=== PATIENT | female | born 1990 | race Caucasian/White ===

== ENCOUNTER 2017-12-18 09:09 | Day surgery (SDC) | payer OTHER ==
[2017-12-18 10:45] LABS: ADD MAN DIFF? NO
[2017-12-18 10:49] LABS: WHITE BLOOD COUNT 11.6 10^3/ul (4.8-10.8)
[2017-12-18 10:49] LABS: BASOPHILS % 0.1 % (0.0-2.0); EOSINOPHILS % 0.1 % (0.0-7.0); HEMATOCRIT 32.2 % (37.0-47.0); HEMOGLOBIN 10.2 g/dl (12.0-16.0); LYMPHOCYTES # 0.6 10^3/ul (0.8-2.9); LYMPHOCYTES % 5.3 % (15.0-51.0); MEAN CORPUSCULAR HEMOGLOBIN 33.2 pg (29.0-33.0); MEAN CORPUSCULAR HGB CONC 31.7 g/dl (32.0-37.0); MEAN CORPUSCULAR VOLUME 104.9 fl (82.0-101.0); MEAN PLATELET VOLUME 10.7 fl (7.4-10.4); MONOCYTE # 0.6 10^3/ul (0.3-0.9); MONOCYTES % 5.2 % (0.0-11.0); NEUTROPHIL # 10.3 10^3/ul (1.6-7.5); NEUTROPHILS % 88.8 % (39.0-77.0); PLATELET COUNT 151 10^3/UL (140-415); RED BLOOD COUNT 3.07 10^6/ul (4.20-5.40)
[2017-12-18] MEDS ORDERED: MIDAZOLAM 1 MG/ML 2 ML INJ ×2 (11:09→11:24)
[2017-12-18] MEDS ORDERED: HEPARIN 1000 UNITS/NS (A-LINE) 1,000 ML (11:09)
[2017-12-18] MEDS ORDERED: FENTAnyl 50 MCG/ML VIAL (11:09)
[2017-12-18] MEDS ORDERED: DIPHENHYDRAMINE 50 MG INJ (11:09)
[2017-12-18 11:14] LABS: ALANINE AMINOTRANSFERASE 147 IU/L (13-69); ALBUMIN 3.6 g/dl (3.3-4.9); ALBUMIN/GLOBULIN RATIO 1.33; ALKALINE PHOSPHATASE 70 IU/L (42-121); ANION GAP 10 (5-13); ASPARTATE AMINO TRANSFERASE 34 IU/L (15-46); BILIRUBIN,INDIRECT 0.2 mg/dl (0-1.1); BILIRUBIN,TOTAL 0.2 mg/dl (0.2-1.3); BLOOD UREA NITROGEN 18 mg/dl (7-20); CALCIUM 8.5 mg/dl (8.4-10.2); CARBON DIOXIDE 27 mmol/L (21-31); CHLORIDE 104 mmol/L (97-110); CREATININE 0.71 mg/dl (0.44-1.00); Estimated GFR > 60 mL/min (>60); GLUCOSE 92 mg/dl (70-220); INR 0.91; POTASSIUM 3.8 mmol/L (3.5-5.1); PROTIME 12.3 Sec (11.9-14.9); SODIUM 141 mmol/L (135-144); TOTAL PROTEIN 6.3 g/dl (6.1-8.1)
[2017-12-18 11:16] LABS: PARTIAL THROMBOPLASTIN TIME 20.7 Sec (23.0-35.0)
[2017-12-18] MEDS ORDERED: HEPARIN 1000 UNITS/ML 10 ML INJ (11:36)
== END 2017-12-18 13:30 | disposition home or self-care (01) ==
LOC: SDS 09:09
DX: T82.598A Other mechanical complication of other cardiac and vascular devices and implants, initial encounter (principal); Y82.8 Other medical devices associated with adverse incidents; Y84.8 Other medical procedures as the cause of abnormal reaction of the patient, or of later complication, without mention of misadventure at the time of the procedure
CPT/HCPCS: 36580; 71045; 80053; 82962; 85025; 85610; 85730; 93005

== ENCOUNTER 2017-12-26 09:31 | Day surgery (SDC) | payer OTHER ==
[2017-12-26] MEDS ORDERED: LIDOCAINE 2% (MDV) 20 ML INJ (11:19)
[2017-12-26] MEDS ORDERED: IODIXANOL LOCM 50 ML BTL (11:19)
[2017-12-26] MEDS ORDERED: MIDAZOLAM 1 MG/ML 2 ML INJ (11:19)
[2017-12-26] MEDS ORDERED: FENTAnyl 50 MCG/ML VIAL ×3 (11:19→12:38)
[2017-12-26] MEDS ORDERED: SOD CHLORIDE 0.9% 500 ML (11:19)
[2017-12-26] MEDS: DIPHENHYDRAMINE 50 MG INJ IV (11:30)
[2017-12-26] MEDS: FAMOTIDINE 20 MG INJ IV (11:30)
[2017-12-26] MEDS ORDERED: HEPARIN 1000 UNITS/ML 10 ML INJ (11:37)
[2017-12-26] MEDS ORDERED: ONDANSETRON 4 MG INJ (12:04)
[2017-12-26] MEDS: FENTAnyl 50 MCG/ML VIAL IV (12:50)
== END 2017-12-26 13:50 | disposition home or self-care (01) ==
LOC: SDS 09:31
DX: T82.594A Other mechanical complication of infusion catheter, initial encounter (principal); Y82.8 Other medical devices associated with adverse incidents; Y84.8 Other medical procedures as the cause of abnormal reaction of the patient, or of later complication, without mention of misadventure at the time of the procedure
CPT/HCPCS: 36578; 71045; 77001; 82962